=== PATIENT | female | born 1970 | race Caucasian/White ===

== ENCOUNTER → 2021-10-01 | Outpatient (CLI) | payer OTHER, MEDICARE ==
[~2021-10-01] VITALS: Ht 160 cm; Wt 98.0 kg
[~2021-10-01] MED LIST: LIDOCAINE 1% INJ 20 ML VIAL INJ ONE; LIDOCAINE 1% INJ 50 ML (XYLOCAINE) VIAL ONE
--- NOTE | 2021-10-02 08:17 | Diagnostic Imaging Report ---
INDICATION: Left thyroid nodule. PROCEDURE: The patient presents for ultrasound guided fine needle aspiration and biopsy. The patient was brought to the procedure room and placed on the table in the supine position. Ultrasound imaging of the left neck was performed to evaluate appropriate entry site. Left neck was then prepped and draped in the usual sterile fashion. A small amount of 1% lidocaine was utilized for local anesthesia. A total of 4 passes were made into the solid nodule in the lower pole left lobe of the thyroid utilizing 25-gauge needles and fine-needle aspiration technique. A single pass was made with a Rotex needle and Rotex biopsy was performed. Needle was removed and hemostasis was obtained. The patient tolerated the procedure well and left the department in stable condition. IMPRESSION: Successful ultrasound-guided fine-needle aspiration and Rotex biopsy of the left lobe thyroid nodule. Pathology results are currently pending. Dictated by: Dictated on workstation # [id number]
== END ==
LOC: RAD 14:45
PROVIDERS: ATTEND Nurse Practitioner Family
DX: E04.1 Nontoxic single thyroid nodule (principal)
CPT/HCPCS: 10005

== ENCOUNTER 2022-04-12 14:12 | Emergency (ER) | payer OTHER, MEDICARE ==
[~2022-04-12] VITALS: Ht 167.7 cm; Wt 99.8 kg
--- NOTE | 2022-04-12 15:10 | Diagnostic Imaging Report ---
INDICATION: Wrist pain. FINDINGS: There is a fracture of the distal left radial metaphysis. There does not appear to be intra-articular extension. This may be slightly impacted. IMPRESSION: Minimally displaced fracture of the distal left radial metaphysis. Dictated by: Dictated on workstation # [id number]
--- NOTE | 2022-04-12 15:22 | ED Upper Extremity ---
General Chief Complaint: Upper Extremity Stated Complaint: L WRIST PAIN Nursing Triage Note: PT TO ED BY POV WITH C/O L WRIST PAIN. PT REPORTS SHE INJURED HER L WRIST ON WEDNESDAY WHEN SHE FELL. STATES "I WAITED TO SEE IF IT WOULD GET BETTER WITH TIME, BUT IT STILL REALLY HURTS." NO OBVIOUS VISUAL DEFORMITIES. REPORTS SWELLING AFTER INJURY. (FRANCISCO JAVIER RUIZ) History of Present Illness Date Seen by Provider: Apr 12, 2022 Time Seen by Provider: 14:30 Initial Comments 51-year-old female reports that on 04/09/2022 she fell on an outstretched left arm. She had immediate onset of pain to her left wrist she has been treating it conservatively. She denies any previous history of fractures to her left upper extremity. She denies any other complaints related to the fall. Onset: last week Pain/Injury Location: left wrist Method of Injury: fell Modifying Factors: Improves With Rest (FRANCISCO JAVIER RUIZ) Allergies and Home Medications Allergies Coded Allergies: aspirin (Verified Allergy, Unknown, 10/01/21) latex (Verified Allergy, Unknown, 10/01/21) Patient Home Medication List Home Medication List Reviewed: Yes (FRANCISCO JAVIER RUIZ) Tramadol HCl (Tramadol HCl) 50 Mg Tablet, 50 MG PO Q6H PRN for PAIN Prescribed by: FRANCISCO JAVIER RUIZ on 04/12/22 7275 Review of Systems Constitutional: no symptoms reported, see HPI Musculoskeletal: see HPI, joint pain (Left wrist) (FRANCISCO JAVIER RUIZ) All Other Systems Reviewed Negative Unless Noted: Yes (FRANCISCO JAVIER RUIZ) Past Vqmrhlo-Qhwjvf-Gubqel Hx Patient Social History Tobacco Use?: No Use of E-Cig and/or Vaping dev: Yes E-Cig or Vaping type used: Other Use of E-Cig and/or Vaping Santhosh: Current Everyday User Substance use?: No Alcohol Use?: No Pt feels they are or have been: No (FRANCISCO JAVIER RUIZ) Immunizations Up To Date Influenza Vaccine Up-to-Date: No; Not Current (FRANCISCO JAVIER RUIZ) Past Medical History Surgery/Hospitalization HX: PMH: DM 2, ADRENAL TUMOR, FIBROMYALGIA SX: R HIP REPLACEMENT, TONSILECTOMY, CHOLECYSTECTOMY, C-SECT (FRANCISCO JAVIER RUIZ) Family Medical History Reviewed Nursing Family Hx (FRANCISCO JAVIER RUIZ) Physical Exam Vital Signs Vital Signs - First Documented 04/12/22 14:25 Temp 36.9 Pulse 83 Resp 18 B/P (MAP) 118/79 (92) Pulse Ox 98 O2 Delivery Room Air (GEOFF CHAVES MD) Vital Signs Capillary Refill : Less Than 3 Seconds (FRANCISCO JAVIER RUIZ) Height, Weight, BMI Height: '" Weight: lbs. oz. kg; 35.00 BMI Method: General Appearance: WD/WN, no apparent distress Cardiovascular: normal peripheral pulses, regular rate, rhythm Respiratory: chest non-tender, lungs clear, normal breath sounds Gastrointestinal: normal bowel sounds, non tender, soft Wrist: Yes bone tenderness (Left distal radius and ulnar styloid), Yes limited ROM, Yes pain, Yes soft tissue tenderness, Yes swelling Hand: Left, swelling Neurologic/Tendon: normal sensation, normal motor functions, normal tendon functions Neurologic/Psychiatric: no motor/sensory deficits, alert, normal mood/affect, oriented x 3 Skin: other (Multiple superficial abrasions noted to lower extremities. The patient reports having kittens and getting scratches. Stressed the importance that she wear protective clothing or keep the kittens away from her, with being a diabetic she is at high risk for infections. No areas of drainage, abscess or other concerns for infection.) (FRANCISCO JAVIER RUIZ) Progress/Results/Core Measures Results/Orders Blood Pressure Mean: 92 Diagnostic Imaging Diagonstic Imaging: Xray Plain Films/CT/US/NM/MRI: forearm Comments NAME: OSMANY GOETZ Will [facility] REC#: [id number] PT STATUS: REG ER : 1970 PHYSICIAN: FRANCISCO JAVIER RUIZ ADMIT DATE: 04/12/22/ER Signed Date of Exam:04/12/22 WRIST, LEFT, 3 VIEWS OR MORE INDICATION: Wrist pain. FINDINGS: There is a fracture of the distal left radial metaphysis. There does not appear to be intra-articular extension. This may be slightly impacted. IMPRESSION: Minimally displaced fracture of the distal left radial metaphysis. Dictated by: Dictated on workstation # [id number] Dict: 04/12/22 1502 Trans: 04/12/22 1512 [facility] [id number] Interpreted by: ERIC YUEN MD Electronically signed by: ERIC YUEN MD 04/12/22 1512 Reviewed: Reviewed by Me (concern for distal radius and ulnar styloid fracture on xray and exam) (FRANCISCO JAVIER RUIZ) Departure Impression Primary Impression: Fracture of radius and ulna Qualified Codes: S52.92XA - Unspecified fracture of left forearm, initial encounter for closed fracture; S52.202A - Unspecified fracture of shaft of left ulna, initial encounter for closed fracture Disposition: HOME, SELF-CARE Condition: Improved Departure-Patient Inst. Decision time for Depature: 15:25 (FRANCISCO JAVIER RUIZ) Referrals: PIPPA GRACIA JUSTIN S MD Patient Instructions: Wrist Fracture (DC) Add. Discharge Instructions: Wear splint at all times. May remove for bathing. Ice pack to left wrist for 20 minutes every 2 hours while awake. Gentle range of motion to the left fingers several times daily. Alternate between Tylenol 650 mg and ibuprofen 600 mg every 4 hours for pain. Use the tramadol for pain that is not controlled by the Tylenol and ibuprofen. Call Dr. Pham's office tomorrow for appointment. Clean the skin abrasions with peroxide and apply triple antibiotic ointment, if any signs of infection see your primary care provider immediately. Return to the emergency department for new, urgent healthcare problems. All discharge instructions reviewed with patient and/or family. Voiced understanding. Scripts Tramadol HCl (Tramadol HCl) 50 Mg Tablet 50 MG PO Q6H PRN for PAIN, #15 TAB 0 Refills Prov: FRANCISCO JAVIER RUIZ 04/12/22 ATTENDING PHYSICIAN NOTE: I was physically present as attending physician in the emergency department during the care of this patient, but I was not directly involved in the decision making or delivery of care for this patient. (GEOFF CHAVES MD) Copy Copies To 1: SANDY PHAM MD, AMY ARNP Apr 12, 2022 15:21 GEOFF CHAVES MD Apr 15, 2022 02:07
[2022-04-12] MEDS ORDERED: TRM50T PO (15:35)
[2022-04-12 15:45] VITALS: BP 118/79
== END 2022-04-12 15:44 | disposition home or self-care (01) ==
LOC: EDUNIT# 14:12 → ER 14:13
DX: S52.612A Displaced fracture of left ulna styloid process, initial encounter for closed fracture (principal); F17.290 Nicotine dependence, other tobacco product, uncomplicated; Z28.310 Unvaccinated for COVID-19; W18.30XA Fall on same level, unspecified, initial encounter
CPT/HCPCS: 73110

== ENCOUNTER 2022-04-19 13:53 | Emergency (ER) | payer OTHER, MEDICARE ==
[~2022-04-19] VITALS: Ht 165 cm; Wt 95.3 kg
[~2022-04-19 13:53] MED LIST changes: -LIDOCAINE 1% INJ 20 ML VIAL INJ ONE; -LIDOCAINE 1% INJ 50 ML (XYLOCAINE) VIAL ONE; +TRM50T PO
--- NOTE | 2022-04-19 14:26 | ED General ---
General Chief Complaint: Upper Extremity Stated Complaint: LEFT WRIST INJURY/PAIN Nursing Triage Note: PT TO ED IN WITH SON WITH C/O L WRIST PAIN. PT WAS SEEN AND TREATED HERE FOLLOWING INJURY ON 04/12. PT HAS APPOINTMENT WITH [facility]TH[facility] ON , BUT REPORTS SHE IS OUT OF TRAMADOL AND IS STILL HAVING PAIN. REPORTS SHE HAS HAD INCREASED PAIN AND WRIST HAS FELT "DIFFERENT" SINCE SHE WAS GETTING OUT OF A CHAIR ON WEDNESDAY. Source of Information: Patient Exam Limitations: No Limitations (ROSA RENO MED STUDENT) History of Present Illness Date Seen by Provider: Apr 19, 2022 Time Seen by Provider: 14:19 Initial Comments Sherri Purcell is a 51 yo female who presents for continued left wrist pain following injury on 04/09. Pt was seen here on 04/12 for distal radial metaphysis fracture, given tramadol and placed in a splint. Pt is scheduled to f/u with Dr. Pham on Wednesday. Pt states on 04/13 she felt a "slipping" sensation when getting up from a chair where she had to put mild pressure on her left wrist for support. Pt states she has had 8/10 pain ever since that feels like a deep burning ache with "lightening bolts". She also reports associated pins/needles and tingling sensation in the fingers and thumb. She reports she has been keeping the wrist in the splint except to shower. She has taken all of the tra madol that was prescribed to her on 04/12. In addition she is taking tylenol and ibuprofen with no relief. She is applying ice to the wrist, which helps numb the pain for a short period of time. Pt is concerned that she has further damaged the wrist and that is why she is seeking care today. ROS negative unless otherwise stated. Timing/Duration: Other (10 days) Modifying Factors: improves with Cold Therapy, improves with Immobilization, improves with Medication (Tramadol); worse with Movement Associated Systoms: Denies Symptoms (ROSA RENO MED STUDENT) Allergies and Home Medications Allergies Coded Allergies: aspirin (Verified Allergy, Unknown, 10/01/21) latex (Verified Allergy, Unknown, 10/01/21) Patient Home Medication List Home Medication List Reviewed: Yes (AYDIN BRENNAN MD) Tramadol HCl (Tramadol HCl) 50 Mg Tablet, 50 MG PO Q6H PRN for PAIN Prescribed by: FRANCISCO JAVIER RUIZ on 04/12/22 1535 Review of Systems Review of Systems Constitutional: No chills, No fever EENTM: No blurred vision, No vision loss Respiratory: No dyspnea on exertion, No short of breath Cardiovascular: No chest pain, No palpitations Gastrointestinal: No constipation, No diarrhea, No nausea, No vomiting Genitourinary: No dysuria, No frequency Musculoskeletal: No back pain; joint pain (left wrist); No muscle weakness Skin: lesions Psychiatric/Neurological: Denies Headache, Denies Numbness; Paresthesia, Tingling Hematologic/Lymphatic: No Symptoms Reported Immunological/Allergic: no symptoms reported (ROSA RENO STUDENT) Past Uqckcbk-Yqdtzj-Qbmiiu Hx Patient Social History Tobacco Use?: No Use of E-Cig and/or Vaping dev: No Substance use?: No Alcohol Use?: No Pt feels they are or have been: No (ROSA RENO) Immunizations Up To Date Influenza Vaccine Up-to-Date: No; Not Current (ROSA RENO) Past Medical History Surgery/Hospitalization HX: PMH: DM 2, ADRENAL TUMOR, FIBROMYALGIA SX: R HIP REPLACEMENT, TONSILECTOMY, CHOLECYSTECTOMY, C-SECT (ROSA RENO) Physical Exam Vital Signs Vital Signs - First Documented 04/19/22 14:07 Temp 36.6 Pulse 81 Resp 16 B/P (MAP) 137/88 (104) Pulse Ox 97 O2 Delivery Room Air (AYDIN BRENNAN MD) Vital Signs Capillary Refill : Less Than 3 Seconds (ROSA RENO) Height, Weight, BMI Height: '" Weight: lbs. oz. kg; 35.00 BMI Method: General Appearance: No Apparent Distress, WD/WN HEENT: PERRL/EOMI Neck: Full Range of Motion, Normal Inspection Respiratory: No Accessory Muscle Use, No Respiratory Distress Extremity: Other (normal sensation in bilateral UE, normal ROM in bilateral elbow joints, decreased ROM d/t pain in left wrist) Neurologic/Psychiatric: Alert, Oriented x3, Normal Mood/Affect Skin: Ecchymosis (over dorsal aspect of left wrist), Other (innumerable superficial lacerations of bilateral LE from animal scratches) (ROSA RENO STUDENT) Progress/Results/Core Measures Suspected Sepsis SIRS Temperature: Pulse: 81 Respiratory Rate: 16 Blood Pressure 137 /88 Mean: 104 (ROSA RENO MED STUDENT) Results/Orders My Orders Orders - AYDIN BRENNAN MD Wrist, Left, 3 Views Or More (04/19/22 14:20) Tramadol Tablet (Ultram Tablet) (04/19/22 14:30) (AYDIN BRENNAN MD) Medications Given in ED Current Medications Medications Dose Ordered Sig/Layne Route Start Time Stop Time Status Last Admin Dose Admin Tramadol HCl 50 mg ONCE ONCE PO 04/19/22 14:30 04/19/22 14:31 DC 04/19/22 14:28 50 MG (AYDIN BRENNAN MD) Vital Signs/I&O 04/19/22 14:07 Temp 36.6 Pulse 81 Resp 16 B/P (MAP) 137/88 (104) Pulse Ox 97 O2 Delivery Room Air (AYDIN BRENNAN MD) Vital Signs/I&O Capillary Refill : Less Than 3 Seconds (ROSA RENO MED STUDENT) Blood Pressure Mean: 104 Progress Note : Time: 14:55 (ROSA RENO MED STUDENT) Diagnostic Imaging Diagonstic Imaging: Xray Plain Films/CT/US/NM/MRI: forearm Comments Transversely oriented fracture of the distal left radial metaphysis again demonstrated. Perhaps very slight increased dorsal displacement and angulation compared to prior. Increasing soft tissue edema. (ROSA RENO MED STUDENT) Departure Impression Primary Impression: Closed left radial fracture Qualified Codes: S52.502A - Unspecified fracture of the lower end of left radius, initial encounter for closed fracture Disposition: HOME, SELF-CARE Condition: Stable Departure-Patient Inst. Decision time for Depature: 15:11 (AYDIN BRENNAN MD) Referrals: PIPPA GRACIA DO (PCP/Family) Primary Care Physician SANDY PHAM MD Add. Discharge Instructions: Continue to apply ice 4 times daily for 20 minutes at a time to help with swelling and discomfort. Keep the left wrist elevated above the level of your heart. Tramadol 1 tablet every 6-8 hours as needed for pain. You can supplement with extra strength Tylenol. Keep your follow-up appointment with Dr. Pham on Wednesday. Do not take the splint off unless it is to bathe. Scripts Tramadol HCl (Tramadol HCl) 50 Mg Tablet 50 MG PO Q6H PRN for PAIN for 3 Days, #8 TAB 0 Refills Prov: AYDIN BRENNAN MD 04/19/22 Verification and Attestation of Medical Student E/M Service A medical student performed and documented this service in my presence. I reviewed and verified all information documented by the medical student and made modifications to such information, when appropriate. I personally performed the physical exam and medical decision making. Aydin Brennan, Apr 19, 2022,15:14 (AYDIN BRENNAN MD) Copy Copies To 1: SANDY PHAM MD, [place] A MED STUDENT Apr 19, 2022 14:26 AYDIN BRENNAN MD Apr 19, 2022 15:14
--- NOTE | 2022-04-19 14:50 | Diagnostic Imaging Report ---
INDICATION: Known wrist fracture with increasing pain. TECHNIQUE: 3 views of the left wrist at 2:33 PM. CORRELATION STUDY: 04/12/2022. FINDINGS: Predominantly transverse linear fracture of the distal left radial metaphysis again demonstrated. Fracture line remains well-visualized. There is perhaps very slight increased dorsal displacement and angulation compared to the prior study. Also may be slightly increased impaction. No new bony abnormality. Carpal bones unchanged with advanced degenerative change of the 1st carpometacarpal articulation. Prominent generalized soft tissue edema. IMPRESSION: Transversely oriented fracture of the distal left radial metaphysis again demonstrated. Perhaps very slight increased dorsal displacement and angulation compared to prior. Increasing soft tissue edema. Dictated by: Dictated on workstation # [id number]
[2022-04-19] MEDS ORDERED: TRM50T PO (15:12)
[2022-04-19 15:41] VITALS: BP 127/85
== END 2022-04-19 15:40 | disposition home or self-care (01) ==
LOC: EDUNIT# 13:53 → ER 13:56
DX: S59.202A Unspecified physeal fracture of lower end of radius, left arm, initial encounter for closed fracture (principal); Z91.040 Latex allergy status; X58.XXXA Exposure to other specified factors, initial encounter
CPT/HCPCS: 73110

== ENCOUNTER → 2022-04-21 | Outpatient (CLI) | payer OTHER, MEDICARE ==
[~2022-04-21] MED LIST changes: +ATOR40TA70 PO; +CANA1TAB4 PO; +DULA3PEN SQ; +DULO60CA59 PO; +OXC5T PO; +PREG100C55 PO
== END ==
LOC: ORTHO 13:39
PROVIDERS: ATTEND Orthopaedic Surgery
DX: S52.539A Colles' fracture of unspecified radius, initial encounter for closed fracture (principal); X58.XXXA Exposure to other specified factors, initial encounter
CPT/HCPCS: 99203

== ENCOUNTER 2022-04-22 05:33 | Outpatient (CLI) | payer OTHER, MEDICARE ==
[~2022-04-22] VITALS: Ht 165.1 cm; Wt 102.0 kg
[~2022-04-22 05:33] MED LIST changes: -ATOR40TA70 PO; -CANA1TAB4 PO; -DULA3PEN SQ; -DULO60CA59 PO; -OXC5T PO; -PREG100C55 PO
[2022-04-22] MEDS ORDERED: CANA1TAB4 PO (13:26)
[2022-04-22] MEDS ORDERED: DULO60CA59 PO (13:26)
[2022-04-22] MEDS ORDERED: DULA3PEN SQ (13:26)
[2022-04-22] MEDS ORDERED: PREG100C55 PO (13:26)
[2022-04-22] MEDS ORDERED: ATOR40TA70 PO (13:26)
== END 2022-04-22 13:40 ==
LOC: PREOP 05:33
PROVIDERS: ATTEND Orthopaedic Surgery
DX: Z01.818 Encounter for other preprocedural examination (principal)

== ENCOUNTER 2022-04-24 09:14 | Day surgery (SDC) | payer OTHER, MEDICARE ==
[2022-04-24] VITALS (10 sets, daily range): BP systolic 114–171; BP diastolic 71–101
[~2022-04-24] VITALS: Ht 165.1 cm; Wt 102.0 kg
[~2022-04-24 09:14] MED LIST changes: +ATOR40TA70 PO; +CANA1TAB4 PO; +DULA3PEN SQ; +DULO60CA59 PO; +PREG100C55 PO
[2022-04-24] MEDS ORDERED: ONDANSETRON 4 MG/2 ML (SDV) Z0FRAN ONE (09:33)
[2022-04-24] MEDS ORDERED: fentaNYL INJ 100 MCG/2 ML AMP ONE (09:33)
[2022-04-24] MEDS ORDERED: LIDOCAINE PF 2% 5 ML (XYLOCAINE) VIAL ONE (09:33)
[2022-04-24] MEDS ORDERED: MIDAZOLAM 2 MG/2 ML (VERSED) VIAL ONE (09:33)
[2022-04-24] MEDS ORDERED: proPOfol 200 MG/20 ML (DIPRIVAN) VIAL IV ONE (09:33)
--- NOTE | 2022-04-24 09:35 | Progress Note-Pre Operative ---
Pre-Operative Progress Note Date of Available H&P: Apr 21, 2022 Date H&P Reviewed: Apr 24, 2022 Time H&P Reviewed: 09:30 History & Physical: H&P Reviewed, Patient Examed, No changes noted Pre-Operative Diagnosis: Left Distal Radius Fracture SANDY NELSON MD Apr 24, 2022 09:35
[2022-04-24] MEDS ORDERED: ceFAZolin INJECTION 1,000 MG VIAL IV ONE (09:45)
[2022-04-24] MEDS ORDERED: LACTATED RINGERS 1,000 ML IV PRN (09:45)
[2022-04-24] MEDS ORDERED: BUPIVACAINE 0.25% 30 ML (SENSORCAINE) VIAL ONE (09:50)
[2022-04-24] MEDS ORDERED: ceFAZolin INJECTION 2,000 MG ONE (09:56)
--- NOTE | 2022-04-24 11:28 | Operative Report - Ortho ---
Operative Report Surgeon (s)/Bluing Oven Tender (s) Surgeon SANDY NELSON MD Bluing Oven Tender n/a Pre-Operative Diagnosis Left Distal Radius Fracture Post-Operative Diagnosis same Operative Report Date of Procedure: Apr 24, 2022 Name of Procedure Performed: Closed Reduction and Percutaneous Pinning of Left Distal Radius Fracture Description & Findings After obtaining informed consent and marking the patient in the preoperative holding area, the patient was administered IV antibiotics. Patient was taken to the operating room and general anesthesia was induced. Surgical timeout was aken. The left upper extremity was prepped and draped in the usual sterile fashion. Reduction was performed using traction and wrist flexion. C-arm was used to evaluate the reduction and it was accepted. A 1.6 wire was introduced through the radial styloid from a dorsal position and placed across the fracture site to the volar cortex. Position of the wire was confirmed. A second wire was then placed from volar at the wrist across the fracture site to the dorsal cortex. C-arm images in the AP and lateral planes demonstrated appropriate reduction of the fracture as well as position of the wires. Wires were bent, cut, and capped with Kimmy balls. Final images were taken and transferred to PACS. Pin sites were dressed with xeroform and 4x4s. Arm was wrapped with cast padding and a volar wrist splint was applied. Patient tolerated the procedure well and was stable to the recovery room. Anesthesia Type General Estimated Blood Loss minimal Specimen(s) collected/removed None SANDY NELSON MD Apr 24, 2022 11:28
[2022-04-24] MEDS ORDERED: ONDANSETRON 4 MG/2 ML (SDV) Z0FRAN IVP PRN (11:30)
[2022-04-24] MEDS ORDERED: morphine INJ 10 MG/ML 1ML (SYR OR VIAL) IVP ONE (11:30)
[2022-04-24] MEDS ORDERED: SEVOFLURANE (ULTANE) 15 ML INHAL SOLN ONE (11:31)
[2022-04-24] MEDS ORDERED: OXC5T PO (11:31)
--- NOTE | 2022-04-24 14:25 | Anesthesia-General Post-Op ---
General Patient Condition Mental Status/LOC: Same as Preop Cardiovascular: Satisfactory Nausea/Vomiting: Absent Respiratory: Satisfactory Pain: Controlled Complications: Absent Post Op Complications Complications None Follow Up Care/Instructions Patient Instructions None needed. Anesthesia/Patient Condition Patient Condition Patient is doing well, no complaints, stable vital signs, no apparent adverse anesthesia problems. No complications reported per nursing. SANDY BAEZ CRNA Apr 24, 2022 14:25
--- NOTE | 2022-04-24 17:04 | Diagnostic Imaging Report ---
INDICATION: Left wrist fracture IMPRESSION: 25 seconds fluoroscopy and 2 intraoperative digital images were used in surgery by Dr. Pham during internal fixation of the distal radius fracture. Dictated by: Dictated on workstation # [id number]
== END 2022-04-24 13:45 | disposition home or self-care (01) ==
LOC: SDC 09:14
PROVIDERS: ATTEND Orthopaedic Surgery
DX: S52.532A Colles' fracture of left radius, initial encounter for closed fracture (principal); E11.40 Type 2 diabetes mellitus with diabetic neuropathy, unspecified; Z79.84 Long term (current) use of oral hypoglycemic drugs; Z79.899 Other long term (current) drug therapy; W19.XXXA Unspecified fall, initial encounter; Z87.891 Personal history of nicotine dependence; E66.9 Obesity, unspecified; Z68.37 Body mass index [BMI] 37.0-37.9, adult
CPT/HCPCS: 76000; 82947; 87081

== ENCOUNTER → 2022-05-01 | Outpatient (CLI) | payer OTHER, MEDICARE ==
[~2022-05-01] MED LIST changes: +OXC5T PO
== END ==
LOC: ORTHO 10:45
PROVIDERS: ATTEND Orthopaedic Surgery
DX: Z47.89 Encounter for other orthopedic aftercare (principal); E11.9 Type 2 diabetes mellitus without complications; E78.5 Hyperlipidemia, unspecified; E03.9 Hypothyroidism, unspecified

== ENCOUNTER → 2022-05-21 | Outpatient (CLI) | payer OTHER, MEDICARE ==
--- NOTE | 2022-05-21 17:38 | Diagnostic Imaging Report ---
WRIST, LEFT, 3 VIEWS OR MORE INDICATION: Distal radial fracture COMPARISON: 04/19/2022 TECHNIQUE: 3 views left wrist FINDINGS: A fiberglass cast in place, and limits assessment of fine detail. Two percutaneous pins transverse the distal radial fracture. The fracture maintain stable alignment with approximately 5 degrees of dorsal angulation of the radial articular surface. A small amount of healing callus may have developed, but assessment is suboptimal with the gas present. IMPRESSION: Potential early healing of the distal radial fracture. Dictated by: Dictated on workstation # [id number]
== END ==
LOC: ORTHO 11:15
PROVIDERS: ATTEND Orthopaedic Surgery
DX: Z47.89 Encounter for other orthopedic aftercare (principal); S52.502D Unspecified fracture of the lower end of left radius, subsequent encounter for closed fracture with routine healing; X58.XXXD Exposure to other specified factors, subsequent encounter
CPT/HCPCS: 73110

== ENCOUNTER → 2022-06-18 | Outpatient (CLI) | payer OTHER, MEDICARE | LOC: ORTHO 10:23 | PROVIDERS: ATTEND Orthopaedic Surgery | DX: Z47.89 Encounter for other orthopedic aftercare (principal) ==

== ENCOUNTER → 2022-07-31 | Outpatient (CLI) | payer OTHER, MEDICARE | LOC: ORTHO 14:45 | PROVIDERS: ATTEND Orthopaedic Surgery | DX: Z47.89 Encounter for other orthopedic aftercare (principal) | CPT/HCPCS: 99213 ==

== ENCOUNTER 2023-06-10 00:24 | Emergency (ER) | payer OTHER, MEDICARE ==
[~2023-06-10] VITALS: Ht 162.6 cm; Wt 100.0 kg
[~2023-06-10 00:24] MED LIST changes: -PREG100C55 PO; +PREG100C56 PO
--- NOTE | 2023-06-10 00:34 | ED General ---
General Stated Complaint: DIZZINESS/WEAKNESS Source of Information: Patient, EMS Exam Limitations: No Limitations History of Present Illness Date Seen by Provider: Jun 10, 2023 Time Seen by Provider: 00:22 Initial Comments 52-year-old female presents via EMS. When asked why she is here she states "honestly I feel like I am drunk." She states she has had difficulty with coordination and dizziness for the last 2 to 2-1/2 hours. This would put symptom onset around 1030 or 11:00 this evening. She states that she had symptoms like this previously and was ultimately diagnosed with TIA on 2 separate occasions. She denies any recent illness to include fevers chills cough abdominal pain, changes in bowel or bladder habits. She is diabetic. Her blood sugar in route was 145. All other systems reviewed and negative except documented per HPI. Voice recognition software was used to help create this chart Allergies and Home Medications Allergies Coded Allergies: aspirin (Verified Allergy, Unknown, 10/01/21) latex (Verified Allergy, Unknown, 10/01/21) Patient Home Medication List Home Medication List Reviewed: Yes Atorvastatin Calcium (Atorvastatin Calcium) 40 Mg Tablet, 40 MG PO DAILY, (Reported) Entered as Reported by: BAY ROBERT on 04/22/22 1326 Canagliflozin/Metformin HCl (Invokamet 150-1,000 mg Tablet) 150 Mg-1,000 Mg Tablet, 2 EACH PO, (Reported) Entered as Reported by: BAY ROBERT on 04/22/22 1326 Dulaglutide (Trulicity) 3 Mg/0.5 Ml Pen.injctr, 3 MG SQ WEEKLY, (Reported) Entered as Reported by: BAY ROBERT on 04/22/22 1326 Duloxetine HCl (Duloxetine HCl) 60 Mg Capsule.dr, 60 MG PO, (Reported) Entered as Reported by: BAY ROBERT on 04/22/22 1326 Oxycodone Hcl (Oxyir Tablet) 5 Mg Tab, 5 MG PO Q4H, (Reported) Entered as Reported by: SANDY NELSON MD on 04/24/22 1131 Pregabalin (Pregabalin) 100 Mg Capsule, 100 MG PO DAILY, (Reported) Entered as Reported by: BAY ROBERT on 04/22/22 1326 Review of Systems Review of Systems Constitutional: see HPI Past Pbkwrni-Cqevmm-Biwlkd Hx Patient Social History Tobacco Use?: No Use of E-Cig and/or Vaping dev: No Substance use?: No Alcohol Use?: No Seasonal Allergies Seasonal Allergies: Yes Past Medical History Surgery/Hospitalization HX: PMH: DM 2, ADRENAL TUMOR, FIBROMYALGIA SX: R HIP REPLACEMENT, TONSILECTOMY, CHOLECYSTECTOMY, C-SECT Surgeries: Yes (TONSILLECTOMY, GALLBLADDER, , RIGHT HIP REPLACEMENT, RT SHOULDER ) Orthopedic, Tonsillectomy Respiratory: No Cardiac: No High Cholesterol Neurological: Yes Headaches /Migraines, TIA Genitourinary: Yes (URINARY FREQ) Gastrointestinal: No Musculoskeletal: Yes Arthritis, Chronic Back Pain, Fractures Endocrine: Yes Hypothyroidsim, Diabetes, Non-Insulin dep HEENT: Yes (DENTURES) Cancer: No Anxiety, PTSD, Depression Integumentary: No Blood Disorders: Yes (OFF BLOOD THINNERS FOR 3 YEARS) Physical Exam Vital Signs Vital Signs - First Documented 06/10/23 00:25 Temp 37.0 Pulse 83 Resp 18 B/P (MAP) 178/90 (119) Pulse Ox 95 O2 Delivery Room Air Capillary Refill : Height, Weight, BMI Height: '" Weight: lbs. oz. kg; 37.42 BMI Method: General Appearance: No Apparent Distress, WD/WN Eyes: Bilateral Eye Normal Inspection, Bilateral Eye PERRL, Bilateral Eye EOMI HEENT: PERRL/EOMI, Normal ENT Inspection, Pharynx Normal Neck: Normal Inspection, Supple Respiratory: Chest Non Tender, Lungs Clear, Normal Breath Sounds, No Accessory Muscle Use, No Respiratory Distress Cardiovascular: Regular Rate, Rhythm, No Murmur, Normal Peripheral Pulses Gastrointestinal: Normal Bowel Sounds, No Organomegaly, Non Tender, Soft Back: Normal Inspection Extremity: Normal Capillary Refill, Normal Inspection, No Pedal Edema Neurologic/Psychiatric: Alert, Oriented x3, No Motor/Sensory Deficits, Normal Mood/Affect, 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 II-XII Norm as Tested Skin: Normal Color, Warm/Dry Progress/Results/Core Measures Suspected Sepsis SIRS Temperature: Pulse: Respiratory Rate: Laboratory Tests 06/10/23 00:28: White Blood Count 10.0 Blood Pressure / Mean: Laboratory Tests 06/10/23 00:28: Creatinine 1.16, Platelet Count 307, Total Bilirubin 0.4 Results/Orders Lab Results Laboratory Tests Test 06/10/23 00:28 Range/Units White Blood Count 10.0 4.3-11.0 10^3/uL Red Blood Count 4.72 3.80-5.11 10^6/uL Hemoglobin 12.3 11.5-16.0 g/dL Hematocrit 38 35-52 % Mean Corpuscular Volume 81 80-99 fL Mean Corpuscular Hemoglobin 26 25-34 pg Mean Corpuscular Hemoglobin Concent 32 32-36 g/dL Red Cell Distribution Width 17.4 H 10.0-14.5 % Platelet Count 307 130-400 10^3/uL Mean Platelet Volume 9.8 9.0-12.2 fL Immature Granulocyte % (Auto) 1 % Neutrophils (%) (Auto) 85 H 42-75 % Lymphocytes (%) (Auto) 9 L 12-44 % Monocytes (%) (Auto) 5 0-12 % Eosinophils (%) (Auto) 1 0-10 % Basophils (%) (Auto) 0 0-10 % Neutrophils # (Auto) 8.5 H 1.8-7.8 10^3/uL Lymphocytes # (Auto) 0.9 L 1.0-4.0 10^3/uL Monocytes # (Auto) 0.5 0.0-1.0 10^3/uL Eosinophils # (Auto) 0.1 0.0-0.3 10^3/uL Basophils # (Auto) 0.0 0.0-0.1 10^3/uL Immature Granulocyte # (Auto) 0.1 0.0-0.1 10^3/uL Sodium Level 138 135-145 MMOL/L Potassium Level 3.6 3.6-5.0 MMOL/L Chloride Level 109 H 98-107 MMOL/L Carbon Dioxide Level 16 L 21-32 MMOL/L Anion Gap 13 5-14 MMOL/L Blood Urea Nitrogen 16 7-18 MG/DL Creatinine 1.16 0.60-1.30 MG/DL Estimat Glomerular Filtration Rate 56 BUN/Creatinine Ratio 14 Glucose Level 142 H 70-105 MG/DL Calcium Level 9.5 8.5-10.1 MG/DL Corrected Calcium 9.3 8.5-10.1 MG/DL Total Bilirubin 0.4 0.1-1.0 MG/DL Aspartate Amino Transf (AST/SGOT) 27 5-34 U/L Alanine Aminotransferase (ALT/SGPT) 38 0-55 U/L Alkaline Phosphatase 121 40-136 U/L Total Protein 7.5 6.4-8.2 GM/DL Albumin 4.3 3.2-4.5 GM/DL My Orders Orders - ANKIT MOSQUEDA DO Comprehensive Metabolic Panel (06/10/23 00:31) Ct Head Wo (06/10/23 00:31) Cbc And Automated Diff (06/10/23 00:31) Ekg Tracing (06/10/23 00:31) Vital Signs/I&O 06/10/23 06/10/23 00:25 01:58 Temp 37.0 Pulse 83 77 Resp 18 18 B/P (MAP) 178/90 (119) 161/88 Pulse Ox 95 95 O2 Delivery Room Air Room Air Capillary Refill : ECG Comment Sinus rhythm with a rate of 81 bpm. Normal intervals. Normal axis. No ST or T wave abnormalities. No ectopy. No STEMI. Departure Communication (Admissions) Patient is hemodynamically stable. She is neurovascular and sensory intact with no focal deficits. Vital signs are normal and exam is reassuring. Labs are unremarkable. CT scan of her head is negative for any acute intracranial abnormalities. I have independently reviewed all imaging. She is discharged in stable condition with close follow-up. Impression Primary Impression: Dizziness Disposition: 01 HOME, SELF-CARE Condition: Stable Departure-Patient Inst. Patient Instructions: Vertigo (a Type of Dizziness) (DC) Add. Discharge Instructions: You were seen in the emergency department for generally feeling unwell. No emergent medical condition identified for your symptoms today. Increase your fluids at home, rest. This is very likely a viral type illness. Follow-up with your primary doctor for any nonemergent needs. Return to the emergency department for any severe concerns. ANKIT MOSQUEDA DO Jun 10, 2023 00:34
[2023-06-10 00:36] LABS: BASOPHILS % (AUTO) 0 % (0-10); EOSINOPHILS # (AUTO) 0.1 10^3/uL (0.0-0.3); EOSINOPHILS % (AUTO) 1 % (0-10); HEMATOCRIT 38 % (35-52); HEMOGLOBIN 12.3 g/dL (11.5-16.0); LYMPHOCYTES # (AUTO) 0.9 10^3/uL (1.0-4.0); LYMPHOCYTES % (AUTO) 9 % (12-44); MEAN CORPUSCULAR HEMOGLOBIN 26 pg (25-34); MEAN CORPUSCULAR HGB CONC 32 g/dL (32-36); MEAN CORPUSCULAR VOLUME 81 fL (80-99); MEAN PLATELET VOLUME 9.8 fL (9.0-12.2); MONOCYTES # (AUTO) 0.5 10^3/uL (0.0-1.0); MONOCYTES % (AUTO) 5 % (0-12); NEUTROPHILS # (AUTO) 8.5 10^3/uL (1.8-7.8); NEUTROPHILS % (AUTO) 85 % (42-75); PLATELET COUNT 307 10^3/uL (130-400)
[2023-06-10 00:46] LABS: ALBUMIN 4.3 GM/DL (3.2-4.5)
[2023-06-10 00:47] LABS: POTASSIUM 3.6 MMOL/L (3.6-5.0)
[2023-06-10 00:48] LABS: CALCIUM 9.5 MG/DL (8.5-10.1)
[2023-06-10 00:49] LABS: TOTAL PROTEIN 7.5 GM/DL (6.4-8.2)
[2023-06-10 00:51] LABS: BILIRUBIN,TOTAL 0.4 MG/DL (0.1-1.0)
[2023-06-10 00:53] LABS: CREATININE SERUM 1.16 MG/DL (0.60-1.30)
[2023-06-10 01:58] VITALS: BP 161/88
--- NOTE | 2023-06-10 07:13 | Diagnostic Imaging Report ---
PROCEDURE: CT head without contrast. TECHNIQUE: Multiple contiguous axial images were obtained through the brain without the use of intravenous contrast. Auto Exposure Controls were utilized during the CT exam to meet ALARA standards for radiation dose reduction. INDICATION: Dizziness for 2 1/2 hours EXAMINATION: CT brain without contrast 06/10/2023 FINDINGS: There is no evidence for acute hemorrhage or infarct. There is no mass, mass effect, midline shift or hydrocephalus. The paranasal sinuses and mastoid air cells demonstrate no acute abnormality. IMPRESSION: No acute intracranial process. Findings agree with the preliminary report. Dictated by: Dictated on workstation # [id number]
== END 2023-06-10 01:58 | disposition home or self-care (01) ==
LOC: EDUNIT# 00:24 → ER 00:25
DX: R42 Dizziness and giddiness (principal); Z91.040 Latex allergy status
CPT/HCPCS: 36415; 70450; 80053; 85025; 93005